=== PATIENT | male | born 1975 | race Caucasian/White ===

== ENCOUNTER 2024-06-07 18:24 | Observation (INO) | payer OTHER ==
--- NOTE | 2024-06-07 19:39 | ED ---
General Adult HPI - General Chief complaint: Psychiatric Symptoms Stated complaint: SI Time Seen by Provider: 06/07/24 19:00 Source: patient, RN notes reviewed Mode of arrival: ambulatory Limitations: no limitations - History of Present Illness Initial comments: 48-year-old male with history of alcohol abuse presents emergency department with suicidal ideation. States that he has been feeling very down over the past few weeks and has had thoughts of wanting to harm himself. He does not have an overt plan however states that he would walk into oncoming traffic or jump off of a bridge. He denies homicidal ideation, auditory or visual hallucinations. States he normally drinks a pint of alcohol per day with his most recent drink being prior to arrival. Denies history of alcohol withdrawal. States he is not taking medications. - Related Data Home Medications Medication Instructions Recorded Confirmed No Known Home Medications 06/07/24 06/07/24 Allergies Allergy/AdvReac Type Severity Reaction Status Date / Time No Known Allergies Allergy Verified 06/07/24 19:36 Review of Systems ROS Statement: Those systems with pertinent positive or pertinent negative responses have been documented in the HPI. ROS Other: All systems not noted in ROS Statement are negative. Past Medical History Past Medical History: COPD History of Any Multi-Drug Resistant Organisms: None Reported Past Surgical History: No Surgical Hx Reported Past Psychological History: No Psychological Hx Reported Smoking Status: Current every day smoker Past Alcohol Use History: Daily, Heavy, Occasional Past Drug Use History: None Reported General Exam Limitations: no limitations General appearance: alert, in no apparent distress, appears intoxicated Eye exam: Present: normal appearance, PERRL, EOMI. Absent: scleral icterus, conjunctival injection, periorbital swelling Neck exam: Present: normal inspection. Absent: tenderness, meningismus, lymphadenopathy Respiratory exam: Present: normal lung sounds bilaterally. Absent: respiratory distress, wheezes, rales, rhonchi, stridor Cardiovascular Exam: Present: regular rate, normal rhythm, normal heart sounds. Absent: systolic murmur, diastolic murmur, rubs, gallop, clicks GI/Abdominal exam: Present: soft, normal bowel sounds. Absent: distended, tenderness, guarding, rebound, rigid Extremities exam: Present: normal inspection, full ROM, normal capillary refill. Absent: tenderness, pedal edema, joint swelling, calf tenderness Back exam: Present: normal inspection Psychiatric exam: Present: depressed, flat affect, suicidal ideation. Absent: normal affect Course Vital Signs 06/07/24 18:44 Temperature 98 F Pulse Rate 112 H Respiratory 20 Rate Blood Pressure 171/100 O2 Sat by Pulse 97 Oximetry Medical Decision Making - Medical Decision Making Was pt. sent in by a medical professional or institution (, PA, COMMISSIONED SECURITY OFFICER, urgent care, hospital, or residential...) When possible be specific @ -No Did you speak to anyone other than the patient for history (EMS, parent, family, police, friend...)? What history was obtained from this source @ -No Did you review nursing and triage notes (agree or disagree)? Why? @ -I reviewed and agree with nursing and triage notes Were old charts reviewed (outside hosp., previous admission, EMS record, old EKG, old radiological studies, urgent care reports/EKG's, residential records)? Report findings @ -No old charts were reviewed Differential Diagnosis (chest pain, altered mental status, abdominal pain women, abdominal pain men, vaginal bleeding, weakness, fever, dyspnea, syncope, headache, dizziness, GI bleed, back pain, seizure, CVA, palpatations, mental health, musculoskeletal)? @ -Differential Mental Health Depression, anxiety, bipolar, psychosis, schizophrenia, borderline personality, situational depression, adjustment disorder, behavioral disorder, brain tumor, malingering, substance abuse, encephalopathy, medication reaction, dementia, hypothyroidism, degenerative neurologic disorder, lupus.... This is not meant to be all-inclusive list EKG interpreted by me (3pts min.). @ -none X-rays interpreted by me (1pt min.). @ -None done CT interpreted by me (1pt min.). @ -None done U/S interpreted by me (1pt. min.). @ -None done What testing was considered but not performed or refused? (CT, X-rays, U/S, labs)? Why? @ -None What meds were considered but not given or refused? Why? @ -None Did you discuss the management of the patient with other professionals (professionals i.e. , PA, COMMISSIONED SECURITY OFFICER, lab, RT, psych nurse, social service director, safety engineer pressure vessels, teacher, chief media officer, case management social worker)? Give summary @ -spoke with on-call internal medicine physician, Dr. Lagunas, who had agreed to admission with psyhciatric consult in the morning. Was smoking cessation discussed for >3mins.? @ -No Was critical care preformed (if so, how long)? @ -No Were there social determinants of health that impacted care today? How? (Homelessness, low income, unemployed, alcoholism, drug addiction, transportation, low edu. Level, literacy, decrease access to med. care, care home, rehab)? @ -No Was there de-escalation of care discussed even if they declined (Discuss DNR or withdrawal of care, Hospice)? DNR status @ -No What co-morbidities impacted this encounter? (DM, HTN, Smoking, COPD, CAD, Cancer, CVA, ARF, Chemo, Hep., AIDS, mental health diagnosis, sleep apnea, m orbid obesity)? @ -None Was patient admitted / discharged? Hospital course, mention meds given and r oute, prescriptions, significant lab abnormalities, going to OR and other pertinent info. @ -Admitted. 48-year-old male presents emergency department with suicidal ideation. On questioning patient noted to be intoxicated. He is provided with IV fluids. serum alcohol level of 354. Patient be admitted to internal medicine with psychiatry on consult in addition to CIWA protocol. Discussed with Dr. Hanson Undiagnosed new problem with uncertain prognosis? @ -No Drug Therapy requiring intensive monitoring for toxicity (Heparin, Nitro, Insulin, Cardizem)? @ -No Were any procedures done? @ -No Diagnosis/symptom? @ -EtOH intoxication, SI Acute, or Chronic, or Acute on Chronic? @ -acute Uncomplicated (without systemic symptoms) or Complicated (systemic symptoms)? @ -complicated Side effects of treatment? @ -No Exacerbation, Progression, or Severe Exacerbation? @ -No Poses a threat to life or bodily function? How? (Chest pain, USA, PR, pneumonia, PE, COPD, DKA, ARF, appy, cholecystitis, CVA, Diverticulitis, Homicidal, Suicidal, threat to staff... and all critical care pts) @ -No - Lab Data Result diagrams: 06/07/24 19:38 06/07/24 19:38 Lab Results 06/07/24 06/07/24 06/07/24 Range/Units 19:38 19:38 20:27 WBC 4.8 (3.8-10.6) k/uL RBC 4.62 (4.30-5.90) m/uL Hgb 14.1 (13.0-17.5) gm/dL Hct 44.5 (39.0-53.0) % MCV 96.2 (80.0-100.0) fL MCH 30.5 (25.0-35.0) pg MCHC 31.7 (31.0-37.0) g/dL RDW 13.6 (11.5-15.5) % Plt Count 207 (150-450) k/uL MPV 8.0 Neutrophils % 48 % Lymphocytes % 41 % Monocytes % 7 % Eosinophils % 1 % Basophils % 1 % Neutrophils # 2.3 (1.3-7.7) k/uL Lymphocytes # 1.9 (1.0-4.8) k/uL Monocytes # 0.3 (0-1.0) k/uL Eosinophils # 0.1 (0-0.7) k/uL Basophils # 0.0 (0-0.2) k/uL Sodium 144 (137-145) mmol/L Potassium 3.7 (3.5-5.1) mmol/L Chloride 108 H (98-107) mmol/L Carbon Dioxide 22 (22-30) mmol/L Anion Gap 14 mmol/L BUN 9 (9-20) mg/dL Creatinine 0.58 L (0.66-1.25) mg/dL Est GFR (CKD-EPI)AfAm >90 (>60 ml/min/1.73 sqM) Est GFR (CKD-EPI)NonAf >90 (>60 ml/min/1.73 sqM) Glucose 119 H (74-99) mg/dL Calcium 9.1 (8.4-10.2) mg/dL Magnesium 1.7 (1.6-2.3) mg/dL Total Bilirubin 0.6 (0.2-1.3) mg/dL AST 64 H (17-59) U/L ALT 52 H (4-49) U/L Alkaline Phosphatase 66 (38-126) U/L Total Protein 7.0 (6.3-8.2) g/dL Albumin 4.4 (3.5-5.0) g/dL Urine Opiates Screen Not Detected (NotDetected) Ur Oxycodone Screen Not Detected (NotDetected) Urine Methadone Screen Not Detected (NotDetected) Ur Barbiturates Screen Not Detected (NotDetected) U Tricyclic Antidepress Not Detected (NotDetected) Ur Phencyclidine Scrn Not Detected (NotDetected) Ur Amphetamines Screen Not Detected (NotDetected) U Methamphetamines Scrn Not Detected (NotDetected) U Benzodiazepines Scrn Not Detected (NotDetected) Urine Cocaine Screen Not Detected (NotDetected) U Marijuana (THC) Screen Detected H (NotDetected) Serum Alcohol 354 H* mg/dL Disposition Clinical Impression: Alcohol intoxication, Suicidal ideation Disposition: ADMITTED IP TO THIS [facility] Condition: Stable Decision to Admit Reason: Admit from EC Decision Date: 06/07/24 Decision Time: 22:18
[2024-06-07 20:35] LABS: Basophils % (A) 1 %; Eosinophils # (A) 0.1 k/uL (0-0.7); Eosinophils % (A) 1 %; HCT 44.5 % (39.0-53.0); HGB 14.1 gm/dL (13.0-17.5); Lymphocytes # (A) 1.9 k/uL (1.0-4.8); Lymphocytes % (A) 41 %; MCH 30.5 pg (25.0-35.0); MCHC 31.7 g/dL (31.0-37.0); MCV 96.2 fL (80.0-100.0); Monocytes # (A) 0.3 k/uL (0-1.0); Monocytes % (A) 7 %; Neutrophils # (A) 2.3 k/uL (1.3-7.7); Neutrophils % (A) 48 %; Platelet Count 207 k/uL (150-450); RBC 4.62 m/uL (4.30-5.90); RDW 13.6 % (11.5-15.5); WBC 4.8 k/uL (3.8-10.6)
[2024-06-07 20:55] LABS: Amphetamine Screen,Urine Not Detected (NotDetected); Barbiturate Screen,Urine Not Detected (NotDetected); Benzodiazepines Screen,Urine Not Detected (NotDetected); Cocaine Screen,Urine Not Detected (NotDetected); Methadone Screen, Urine Not Detected (NotDetected); Opiate Screen,Urine Not Detected (NotDetected); Oxycodone Screen, Urine Not Detected (NotDetected); Phencyclidine Screen,Urine Not Detected (NotDetected); Tricyclic Antidepressant,Urine Not Detected (NotDetected); Urn Cannabinoid Scrn Detected (NotDetected)
[2024-06-07 20:57] LABS: ALT 52 U/L (4-49); AST 64 U/L (17-59); African American GFR (CKD) >90 (>60 ml/min/1.73 sqM); Albumin 4.4 g/dL (3.5-5.0); Alkaline Phosphatase 66 U/L (38-126); Anion Gap 14 mmol/L; Blood Urea Nitrogen 9 mg/dL (9-20); Calcium 9.1 mg/dL (8.4-10.2); Carbon Dioxide 22 mmol/L (22-30); Chloride 108 mmol/L (98-107); Glucose 119 mg/dL (74-99); Magnesium 1.7 mg/dL (1.6-2.3); Non-African American GFR(CKD) >90 (>60 ml/min/1.73 sqM); Potassium 3.7 mmol/L (3.5-5.1); Sodium 144 mmol/L (137-145); Total Bilirubin 0.6 mg/dL (0.2-1.3)
[2024-06-07 21:22] LABS: Alcohol 354 mg/dL
[2024-06-07] MEDS ORDERED: LORazepam 1 MG TAB PO PRN (21:53)
[2024-06-07] MEDS ORDERED: LORazepam 2 MG/ML INJ IV PRN ×3 (21:53)
[2024-06-07] MEDS ORDERED: ONDANSETRON 4 MG/2 ML VIAL IVP PRN (22:18)
[2024-06-07] MEDS ORDERED: NALOXONE 0.4 MG/ML 1 ML VIAL IV PRN (22:18)
[2024-06-07] MEDS ORDERED: ACETAMINOPHEN TAB 325 MG TAB PO PRN (22:18)
[2024-06-07] MEDS: SODIUM CHLORIDE 0.9% 1,000 ML IV SCH (22:33)
[2024-06-08 03:41] LABS: Basophils % (A) 0 %; Eosinophils # (A) 0.1 k/uL (0-0.7); Eosinophils % (A) 1 %; HCT 42.1 % (39.0-53.0); HGB 13.4 gm/dL (13.0-17.5); Lymphocytes # (A) 1.7 k/uL (1.0-4.8); Lymphocytes % (A) 38 %; MCH 30.7 pg (25.0-35.0); MCHC 31.9 g/dL (31.0-37.0); MCV 96.2 fL (80.0-100.0); Mean Platelet Volume 8.5; Monocytes # (A) 0.3 k/uL (0-1.0); Monocytes % (A) 7 %; Neutrophils # (A) 2.3 k/uL (1.3-7.7); Neutrophils % (A) 51 %; Platelet Count 170 k/uL (150-450); RBC 4.38 m/uL (4.30-5.90); RDW 13.5 % (11.5-15.5); WBC 4.4 k/uL (3.8-10.6)
[2024-06-08 03:56] LABS: ALT 47 U/L (4-49); AST 55 U/L (17-59); African American GFR (CKD) >90 (>60 ml/min/1.73 sqM); Alkaline Phosphatase 73 U/L (38-126); Anion Gap 12 mmol/L; Blood Urea Nitrogen 9 mg/dL (9-20); Calcium 8.9 mg/dL (8.4-10.2); Carbon Dioxide 24 mmol/L (22-30); Chloride 104 mmol/L (98-107); Glucose 134 mg/dL (74-99); Non-African American GFR(CKD) >90 (>60 ml/min/1.73 sqM); Potassium 3.5 mmol/L (3.5-5.1); Sodium 140 mmol/L (137-145); Total Bilirubin 0.5 mg/dL (0.2-1.3); Total Protein 6.4 g/dL (6.3-8.2)
--- NOTE | 2024-06-08 05:52 | P.HPIM ---
History of Present Illness H&P Date: 06/07/24 History of present illness; Patient is a 48-year-old man with alcohol use disorder who presents with alcohol withdrawal and suicidal ideation. He drinks approximately 1 pint of vodka daily. His last drink was last evening and has been drinking heavily for over 20 years. No history of withdrawal seizures or hallucinations. He endorses suicidal ideation, and states he has not been to work in the last week. He has no plans of harming himself. Currently he reports absence of fever, chills, chest pain, palpitations, cough, dyspnea, nausea, vomiting, weakness, myalgia, dizziness, headache, and dysuria. Spoke with the ER physician, patient admission was accepted by internal medicine service for treatment. REVIEW OF SYSTEMS: Pertinent positives and negatives noted in HPI. PHYSICAL EXAMINATION: Vitals reviewed GENERAL: Resting comfortably in bed. EYES: PERRL, no scleral injection or icterus. No vision loss HENT: Normocephalic, atraumatic, hearing grossly intact, moist mucous membranes, tongue fasciculations noted NECK: No tracheal deviation, full range of motion. CARDIOVASCULAR: S1 and S2 present. No murmurs, rubs, or gallops. PULMONARY: Chest is clear to auscultation, no wheezing, rhonchi, or crackles. ABDOMEN: Soft, nontender, nondistended. No palpable organomegaly. MUSCULOSKELETAL: No apparent joint swelling and deformities. EXTREMITIES: No apparent cyanosis, clubbing. No pedal edema. NEUROLOGICAL: Alert and oriented. Gross neurological examination with no apparent focal deficits, outstretched hand tremor PSYCH: Suicidal ideation SKIN: No apparent rashes ER FINDINGS: Labs significant for CBC is WNL, chloride 108, creatinine 0.58, glucose 119, AST 64, ALT 52, urine toxicology with marijuana, serum alcohol 354 Assessment and Plan: In summary, patient is a 48-year-old man with alcohol use disorder who presents with alcohol withdrawal and suicidal ideation. #Alcohol dependence with withdrawal - Alcohol 354, last drink was afternoon of 06/07/2024 CIWA protocol with Ativan IVP in place daily thiamine and folic acid - Seizure and fall precautions - Continue IV NS 75 cc/h Monitor CMP - social professionals consult #Transaminitis, likely due to ongoing EtOH abuse AST 64, ALT 52 Monitor CMP #Suicidal ideation Suicide precautions in place Psychiatry consulted DVT ppx: Subq Lovenox 40 meq daily Code status: Full code F: IV Normal saline 75 mL/hr E: Replete as needed N: Regular diet A: Ambulatory Anticipated discharge place: Home Anticipated discharge time: 3 to 4 days Dictation was produced using [employer] dictation software. Please excuse any grammatical, word or spelling errors. I have seen and evaluated the patient today. I Discussed the case with the resident and agree with the resident's findings I edited the assessment and plan as necessary as documented in the resident's note. Past Medical History Past Medical History: COPD History of Any Multi-Drug Resistant Organisms: None Reported Past Surgical History: No Surgical Hx Reported Past Psychological History: No Psychological Hx Reported Smoking Status: Current every day smoker Past Alcohol Use History: Daily, Heavy, Occasional Past Drug Use History: None Reported Medications and Allergies Home Medications Medication Instructions Recorded Confirmed Type No Known Home Medications 06/07/24 06/07/24 History Allergies Allergy/AdvReac Type Severity Reaction Status Date / Time No Known Allergies Allergy Verified 06/07/24 19:36 Physical Exam Vitals: Vital Signs Temp Pulse Resp BP Pulse Ox 06/07/24 23:35 86 18 124/70 97 06/07/24 22:45 98.5 F 92 18 136/86 95 06/07/24 18:44 98 F 112 H 20 171/100 97 Intake and Output 06/07/24 06/07/24 06/08/24 14:59 22:59 06:59 Other: Weight 72.575 kg Results CBC & Chem 7: 06/08/24 03:22 06/08/24 03:22 Labs: Abnormal Lab Results - Last 24 Hours (Table) 06/07/24 06/07/24 Range/Units 19:38 20:27 Chloride 108 H (98-107) mmol/L Creatinine 0.58 L (0.66-1.25) mg/dL Glucose 119 H (74-99) mg/dL AST 64 H (17-59) U/L ALT 52 H (4-49) U/L U Marijuana (THC) Screen Detected H (NotDetected) Serum Alcohol 354 H* mg/dL
[2024-06-08] MEDS: FOLIC ACID 1 MG TAB PO SCH (08:23)
[2024-06-08] MEDS: THIAMINE 100 MG TAB PO SCH (08:23)
[2024-06-08] MEDS: ENOXAPARIN 40 MG/0.4 ML SYRINGE SQ SCH (08:23)
[2024-06-08] MEDS: LORazepam 0.5 MG TAB PO PRN (08:26)
--- NOTE | 2024-06-08 11:47 | P.PN ---
Subjective Progress Note Date: 06/08/24 Patient is a 48-year-old man with alcohol use disorder who presents with alcohol withdrawal and suicidal ideation. He drinks approximately 1 pint of vodka daily. His last drink was last evening 06/07 and has been drinking heavily for over 20 years. No history of withdrawal seizures or hallucinations. He e ndorses suicidal ideation, and states he has not been to work in the last week. He has no plans of harming himself. Currently he reports absence of fever, chills, chest pain, palpitations, cough, dyspnea, nausea, vomiting, weakness, myalgia, dizziness, headache, and dysuria. 06/08/2024 patient seen and examined at bedside. No acute events overnight. Still noted to have tremors throughout his body while awake. Required no IV Ativan overnight. Labs today showed WBC 4.8, hemoglobin 13.4, platelet count 1 70,000, sodium 140, potassium 3.5, bicarb 24, BUN 9, creatinine 0.54, glucose 134. AST 55, ALT 47. REVIEW OF SYSTEMS: Pertinent positives and negatives noted in HPI. PHYSICAL EXAMINATION: Vitals reviewed GENERAL: Resting comfortably in bed. EYES: PERRL, no scleral injection or icterus. No vision loss HENT: Normocephalic, atraumatic, hearing grossly intact, moist mucous membranes, jaw fasciculations noted NECK: No tracheal deviation, full range of motion. CARDIOVASCULAR: S1 and S2 present. No murmurs, rubs, or gallops. PULMONARY: Chest is clear to auscultation, no wheezing, rhonchi, or crackles. ABDOMEN: Soft, nontender, nondistended. No palpable organomegaly. MUSCULOSKELETAL: No apparent joint swelling and deformities. EXTREMITIES: No apparent cyanosis, clubbing. No pedal edema. NEUROLOGICAL: Alert and oriented. Gross neurological examination with no apparent focal deficits, bilateral upper and lower extremity tremors on movement PSYCH: Suicidal ideation SKIN: No apparent rashes ER FINDINGS: Labs significant for CBC is WNL, chloride 108, creatinine 0.58, glucose 119, AST 64, ALT 52, urine toxicology with marijuana, serum alcohol 354 Assessment and Plan: In summary, patient is a 48-year-old man with alcohol use disorder who presents with alcohol withdrawal and suicidal ideation. #. Alcohol intoxication with withdrawal #. Alcohol dependence - Alcohol 354, last drink was afternoon of 06/07/2024 CIWA protocol with Ativan PO and IVP in place daily thiamine and folic acid - Seizure and fall precautions - Continue IV NS 75 cc/h Monitor CMP - [employer] re plan for cessation - social work nurse consult #. Transaminitis, likely due to ongoing EtOH abuse, resolved AST 55, ALT 47 #. Hypertension -SBP 140s-150s -Will continue to monitor -Reevaluate once patient withdrawal has improved #. Suicidal ideation #. Marijuana use Suicide precautions in place Psychiatry consulted -[employer] Associate re plan for cessation DVT ppx: Subq Lovenox 40 meq daily Code status: Full code F: IV Normal saline 75 mL/hr E: Replete as needed N: Regular diet A: Ambulatory I saw and evaluated the patient during the alford and critical portions of this encounter, and discussed the case in detail with the resident author of this note, I agree with the Assessment and Plan, and my changes, if any, are highlighted in blue. Objective - Vital Signs Vital signs: Vital Signs Temp 98.2 F 06/08/24 00:14 Pulse 107 H 06/08/24 00:14 Resp 20 06/08/24 00:14 BP 147/93 06/08/24 00:14 Pulse Ox 94 L 06/08/24 00:14 FiO2 Intake & Output 06/07/24 06/08/24 06/08/24 18:59 06:59 18:59 Weight 72.575 kg 72.575 kg Other: # Voids 2 - Labs CBC & Chem 7: 06/08/24 03:22 06/08/24 03:22 Labs: Abnormal Lab Results - Last 24 Hours (Table) 06/07/24 06/07/24 06/08/24 Range/Units 19:38 20:27 03:22 Chloride 108 H (98-107) mmol/L Creatinine 0.58 L 0.54 L (0.66-1.25) mg/dL Glucose 119 H 134 H (74-99) mg/dL AST 64 H (17-59) U/L ALT 52 H (4-49) U/L U Marijuana (THC) Screen Detected H (NotDetected) Serum Alcohol 354 H* mg/dL
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
[2024-06-08] MEDS: chlordiazePOXIDE 25 MG CAP PO SCH (13:53)
[2024-06-08] MEDS: NALTREXONE HCL 50 MG TAB PO SCH (13:53)
[2024-06-08] MEDS: DULoxetine HCL 30 MG CAPSULE.DR PO SCH (13:53)
[2024-06-08] MEDS: LORazepam 1 MG TAB PO PRN (18:05)
[2024-06-08] MEDS: traZODone HCL 50 MG TAB PO SCH (21:23)
[2024-06-09] MEDS: LORazepam 1 MG TAB PO PRN (04:18)
[2024-06-09 05:17] LABS: African American GFR (CKD) >90 (>60 ml/min/1.73 sqM); Anion Gap 8 mmol/L; Blood Urea Nitrogen 8 mg/dL (9-20); Carbon Dioxide 23 mmol/L (22-30); Chloride 104 mmol/L (98-107); Glucose 90 mg/dL (74-99); Non-African American GFR(CKD) >90 (>60 ml/min/1.73 sqM); Potassium 3.7 mmol/L (3.5-5.1); Sodium 135 mmol/L (137-145)
[2024-06-09 07:52] VITALS: BP 153/79; PULSE 68; RESP 16; TEMP 97.7
--- NOTE | 2024-06-09 13:07 | P.DS ---
Providers Date of admission: 06/07/24 21:49 Expected date of discharge: 06/09/24 Attending physician: Sundar Lagunas MD Consults: 06/08/24 02:33 Consult Physician Routine Consulting Provider: Brant Horner Consult Reason/Comments: SI Do you want consulting provider notified?: Yes, Notify in am Primary care physician: Stated None Hospital Course: #. Alcohol intoxication with withdrawal #. Alcohol dependence #. Transaminitis, likely due to ongoing EtOH abuse, resolved #. Hypertension #. Suicidal ideation #. Marijuana use Hospital Course: Patient is a 48-year-old man with alcohol use disorder who presents with alcohol withdrawal and suicidal ideation. ER FINDINGS: Labs significant for CBC is WNL, chloride 108, creatinine 0.58, glucose 119, AST 64, ALT 52, urine toxicology with marijuana, serum alcohol 354 Patient was admitted for alcohol withdrawal. Treated with CIWA protocol and Ativan as needed. As well as standing Librium. Patient's alcohol was well- controlled on the day of discharge. Incidentally, patient did endorse SI during his hospitalization when he was intoxicated and had a psychiatric consult, patient had no plan to harm himself and did not meet criteria for inpatient psychiatric hospitalization. Patient was subsequently discharged [facility]. Patient was started on thiamine, folate, duloxetine. I spent 34 minutes coordinating this discharge Gen: In NAD, non-toxic HEENT: normocephalic, atraumatic, hearing acuity is intant, mucous membranes moist CVS: perfusing all extremities well, no pitting edema, Respiratory: symmetric chest expansion, no accessory muscle use, GI: soft, NTTP, ND, : no suprapubic tenderness, no CVA tenderness MSK/Derm: no rashes, cyanosis Neuro: CN II-XII intact, no motor weakness, Psych: cooperative, euthymic mood, judgment and insight is intact Patient Condition at Discharge: Good Plan - Discharge Summary Discharge Rx Participant: No New Discharge Prescriptions: New Folic Acid 1 mg PO DAILY #30 tab Naltrexone HCl [Revia] 50 mg PO DAILY #30 tab Thiamine [Vitamin B-1] 100 mg PO DAILY #30 tab DULoxetine HCL [Cymbalta] 30 mg PO DAILY #30 cap Acetaminophen Tab [Tylenol] 650 mg PO Q6HR PRN tab PRN Reason: Mild Pain Or Fever > 100.5 Discharge Medication List Acetaminophen Tab [Tylenol] 650 mg PO Q6HR PRN tab 06/09/24 [Rx] DULoxetine HCL [Cymbalta] 30 mg PO DAILY #30 cap 06/09/24 [Rx] Folic Acid 1 mg PO DAILY #30 tab 06/09/24 [Rx] Naltrexone HCl [Revia] 50 mg PO DAILY #30 tab 06/09/24 [Rx] Thiamine [Vitamin B-1] 100 mg PO DAILY #30 tab 06/09/24 [Rx] Follow up Appointment(s)/Referral(s): [facility] [NON-STAFF] - 1 Week None,Stated [Primary Care Provider] - 1-2 days Discharge Disposition: HOME SELF-CARE
== END 2024-06-09 13:50 | disposition home or self-care (01) ==
LOC: EC 18:24 → 5NMEDONC 21:49
PROVIDERS: ADMIT Internal Medicine; ATTEND Internal Medicine
DX: F10.239 Alcohol dependence with withdrawal, unspecified (principal); F10.229 Alcohol dependence with intoxication, unspecified; F32.9 Major depressive disorder, single episode, unspecified; F41.9 Anxiety disorder, unspecified; R45.851 Suicidal ideations; Y90.8 Blood alcohol level of 240 mg/100 ml or more; R74.01 Elevation of levels of liver transaminase levels; I10 Essential (primary) hypertension; F12.90 Cannabis use, unspecified, uncomplicated; F17.210 Nicotine dependence, cigarettes, uncomplicated
CPT/HCPCS: 96361; 96372 ×2; 82075; 96360; 99284; 36415; 80053 ×2; 80048; 83735; 85025 ×2; 80306; 80320; G0378 ×3; J1650 ×2